=== PATIENT | male | born 1960 ===

== ENCOUNTER 2021-09-18 11:52 | Outpatient (REF) | payer OTHER, SELFPAY | END 2021-09-18 11:53 | disposition home or self-care (01) | LOC: HO.HOSX 11:52 | PROVIDERS: Visit Provider Physician Assistant | DX: Z13.89 Encounter for screening for other disorder (principal) ==

== ENCOUNTER 2021-12-11 14:13 | Outpatient (REF) | payer OTHER, SELFPAY ==
--- NOTE | ~2021-12-11 | XR_ITS ---
EXAMINATION: XR SHOULDER, LEFT CLINICAL INFORMATION: Left shoulder pain. COMPARISON: Left shoulder MRI dated 08/26/2021. TECHNIQUE: AP, scapular Y, and axillary views of the left shoulder. FINDINGS: No acute fracture or dislocation. Moderate acromioclavicular marginal osteophytes. Small lateral subacromial spurs. Mild glenohumeral joint space narrowing with small marginal osteophytes. No osseous erosion. No abnormal soft tissue calcification. 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 Mild glenohumeral osteoarthritis, unchanged.
== END 2021-12-11 14:14 | disposition home or self-care (01) ==
LOC: HO.HOSX 14:13
PROVIDERS: Visit Provider Physician Assistant
DX: M75.102 Unspecified rotator cuff tear or rupture of left shoulder, not specified as traumatic (principal); S46.212A Strain of muscle, fascia and tendon of other parts of biceps, left arm, initial encounter
CPT/HCPCS: 73030; 99202

== ENCOUNTER → 2021-12-18 10:40 | Outpatient (BNVA) | payer OTHER, SELFPAY | PROVIDERS: Visit Provider Orthopaedic Surgery | DX: M75.102 Unspecified rotator cuff tear or rupture of left shoulder, not specified as traumatic (principal) | CPT/HCPCS: 99212 ==

== ENCOUNTER 2022-12-26 11:18 | Emergency (ER) | payer MEDICARE, SELFPAY ==
[2022-12-26 11:23] VITALS: BP 178/87; PULSE 109; RESP 18; TEMP 36.6; O2SAT 98; BMI 25.1
--- NOTE | 2022-12-26 11:26 | ED_ITS ---
HPI - Back Pain/Injury General Chief Complaint: Back Pain/Injury <JUANA Matamoros Last Filed: 12/26/22 11:28> Stated Complaint: back pain rad. to lower back <JUANA Matamoros Last Filed: 12/26/22 11:28> Time Seen by Provider: 12/26/22 12:00 <JUANA Matamoros Last Filed: 12/26/22 11:28> Source: patient, RN notes reviewed and old records reviewed <JUANA Higginbotham Last Filed: 12/26/22 18:14> Mode of arrival: ambulatory <JUANA Higginbotham Last Filed: 12/26/22 18:14> History of Present Illness HPI Narrative: 62-year-old male with no significant past medical history presenting to the ED complaining low back pain radiating up back x 1 week. Denies known injury/trauma or fall. Taking 's medications which include gabapentin without relief at home. Recently had negative outpatient x-rays. Denies radiation of pain down lower extremities, numbness, tingling, weakness, urinary incontinence/retention <JUANA Higginbotham Last Filed: 12/26/22 18:14> MD elicited complaint: back pain <JUANA Higginbotham Last Filed: 12/26/22 18:14> Related Data Home Medications: Previous Rx's Medication Instructions Recorded diclofenac sodium 75 mg 75 mg PO BID PRN pain 30 days #60 04/17/22 tablet,delayed release tabs acetaminophen 500 mg tablet 500 mg PO Q6H PRN fever or pain 12/26/22 (Tylenol Extra Strength) #14 tabs lidocaine 5 % topical patch 1 patch topical DAILY PRN pain #30 12/26/22 (Lidoderm) ea methocarbamol 500 mg tablet 500 mg PO TID 7 days #21 tabs 12/26/22 naproxen 500 mg tablet 500 mg PO BID PRN pain 10 days #20 12/26/22 tabs <JUANA Matamoros Last Filed: 12/26/22 11:28> Allergies/Adverse Reactions: Allergies Allergy/AdvReac Type Severity Reaction Status Date / Time No Known Allergies Allergy Verified 04/17/22 08:11 <JUANA Matamoros - Last Filed: 12/26/22 11:28> Review of Systems Review of Systems: Constitutional: No Fever, No Chills ENT/Mouth: No Ear Pain, No Nasal Congestion, No Sinus Pain, No Hoarseness, No sore throat, No Rhinorrhea, No Swallowing Difficulty Cardiovascular: No Chest Pain, No SOB Respiratory: No Cough, No Sputum, No Wheezing Gastrointestinal: No Nausea, No Vomiting, No Diarrhea, No Constipation, No Abdominal pain Genitourinary: No Dysuria, No Urinary Frequency, No Hematuria, No Urinary Incontinence/retention, No Urgency, No Flank Pain Musculoskeletal: + joint pain, No Myalgias, No Joint Swelling Skin: No Skin Lesions, No rash Neuro: No Weakness, No Numbness, No Paresthesias <JUANA Higginbotham - Last Filed: 12/26/22 18:14> Yes all other systems are reviewed and are negative <JUANA Higginbotham - Last Filed: 12/26/22 18:14> Constitutional: Constitutional: Reports as per HPI <JUANA Higginbotham - Last Filed: 12/26/22 18:14> [facility] Past Medical History Attestation statement: The following information was validated with the patient. <JUANA Higginbotham Last Filed: 12/26/22 18:14> Surgical History: Surgical History History of total left hip replacement <JUANA Matamoros - Last Filed: 12/26/22 11:28> Social History Social History: Social History Housing: Apartment Alcohol intake: never Patient Tobacco Use Status: Never used Tobacco Smoked in Last 30 Days: No e-Cigarette/Vaping Use: Never Used Use of substances other than those prescribed or required for medical reasons: No Advance Directives: No Advance Directives Information Provided: Yes service: No Current occupational status: retired Cognitive needs: No Hearing needs: No Vision needs: No <JUANA Matamoros Last Filed: 12/26/22 11:28> Physical Exam Vital Signs: Vital Signs: Last Vital Signs Temp 98 F 12/26/22 11:23 Pulse 109 H 12/26/22 11:23 Resp 18 12/26/22 11:23 BP 178/87 H 12/26/22 11:23 Pulse Ox 98 12/26/22 11:23 O2 Del Method Room Air 12/26/22 11:23 BMI result Body Mass Index 25.1 <JUANA Matamoros - Last Filed: 12/26/22 11:28> Vital Signs: Last Vital Signs Temp 98 F 12/26/22 11:23 Pulse 109 H 12/26/22 11:23 Resp 18 12/26/22 11:23 BP 178/87 H 12/26/22 11:23 Pulse Ox 98 12/26/22 11:23 O2 Del Method Room Air 12/26/22 11:23 BMI result Body Mass Index 25.1 <JUANA Higginbotham - Last Filed: 12/26/22 18:14> Const: General: cooperative, healthy appearing and no acute distress <JUANA Higginbotham - Last Filed: 12/26/22 18:14> Orientation/consciousness: patient oriented x3 <JUANA Higginbotham - Last Filed: 12/26/22 18:14> Limitations: no limitations <JUANA Higginbotham - Last Filed: 12/26/22 18:14> HEENT: Head: Yes normal to inspection and Yes atraumatic <JUANA Higginbotham - Last Filed: 12/26/22 18:14> Ears: hearing grossly normal bilaterally <JUANA Higginbotham - Last Filed: 12/26/22 18:14> General nose exam: Normal external nose present <JUANA Higginbotham - Last Filed: 12/26/22 18:14> Face and sinus: Yes normal facial exam <JUANA Higginbotham - Last Filed: 12/26/22 18:14> Eyes: General: appearance normal, both eyes and all related structures <JUANA Higginbotham - Last Filed: 12/26/22 18:14> EOM: EOMs intact bilaterally <JUANA Higginbotham - Last Filed: 12/26/22 18:14> Neck: Neck: Yes normal visual inspection and Yes no meningeal signs <Brittney Pouliot, PA - Last Filed: 12/26/22 18:14> Resp: Effort & Inspection: normal respiratory effort and no respiratory distress <Brittney Pouljeaninet, PA - Last Filed: 12/26/22 18:14> Auscultation: clear to auscultation bilaterally <Brittney Pouljeaninet, PA - Last Filed: 12/26/22 18:14> Cardio: Rate: regular rate <Brittney Pouljeaninet, PA - Last Filed: 12/26/22 18:14> Heart sounds: S1 normal heart sound present and S2 normal heart sound present <Brittney Pouljeaninet, PA - Last Filed: 12/26/22 18:14> GI: Inspection: Yes normal to inspection <Brittney Pouljeaninet, PA - Last Filed: 12/26/22 18:14> Palpation (GI): Soft to palpation, nontender, no guarding and not rigid <Brittney Pouljeaninet, PA - Last Filed: 12/26/22 18:14> : General: Yes no CVA tenderness <Brittney Pouljeaninet, PA - Last Filed: 12/26/22 18:14> Back/Spine/Pelvis: Other: No midline thoracic/lumbar spinous tenderness/step-off or deformity. + bilateral lumbar MSK tenderness <Brittney Pouljeaninet, PA - Last Filed: 12/26/22 18:14> Back: no CVA tenderness <Brittney Pouljeaninet, PA - Last Filed: 12/26/22 18:14> Skin: Rashes: no rashes <Brittney Pouljeaninet, PA - Last Filed: 12/26/22 18:14> Wounds: no wounds <Brittney Pouljeaninet, PA - Last Filed: 12/26/22 18:14> Neuro: Other: Strength intact throughout. No saddle anesthesia. Sensation intact to light touch. Neurovascular intact distally <Brittney Pouljeaninet, PA - Last Filed: 12/26/22 18:14> General: patient oriented x3, gait normal, tone normal, moves all extremities, no meningeal signs and no focal motor deficits <Brittney Pouljeaninet, PA - Last Filed: 12/26/22 18:14> Cranial nerves: Yes CN's II-XII intact bilaterally <Brittney Pouljeaninet, PA - Last Filed: 12/26/22 18:14> Cognition (Neuro): normal cognition <JUANA Higginbotham - Last Filed: 12/26/22 18:14> Gait exam (Neuro): Normal gait present <JUANA Higginbotham - Last Filed: 12/26/22 18:14> Extrem: General: Yes normal to inspection <JUANA Higginbotham - Last Filed: 12/26/22 18:14> Course Course Course Narrative: This is an RME: Additional HPI, ROS, PE not included below will be deferred to primary provider. 62-year-old male presents with lower back pain, atraumatic in nature, this has been going on for a week. Recently had an x-ray which was unremarkable. Has been taking ibuprofen and Tylenol with little to no relief. Patient reports 14/10 pain. No red flag symptoms. Patient was ambulatory into triage Plan Toradol cyclobenzaprine <JUANA Matamoros - Last Filed: 12/26/22 11:28> Medications Administered Discontinued Medications Generic Name Dose Route Start Last Admin Trade Name Freq PRN Reason Stop Dose Admin Ketorolac Tromethamine 30 mg 12/26/22 11:27 12/26/22 12:11 Ketorolac Tromethamine 15 Mg/Ml Vial IM 12/26/22 11:28 30 mg ONCE ONE Administration Lidocaine 1 patch 12/26/22 11:27 12/26/22 12:11 Lidocaine 4 % Patch Adh..Patch TRANSDERMA 12/26/22 11:28 1 patch ONCE ONE Administration Protocol Methocarbamol 750 mg 12/26/22 12:22 12/26/22 12:27 Methocarbamol 750 Mg Tablet PO 12/26/22 12:23 750 mg ONCE ONE Administration <JUANA Matamoros - Last Filed: 12/26/22 11:28> Medications Administered Discontinued Medications Generic Name Dose Route Start Last Admin Trade Name Freq PRN Reason Stop Dose Admin Ketorolac Tromethamine 30 mg 12/26/22 11:27 12/26/22 12:11 Ketorolac Tromethamine 15 Mg/Ml Vial IM 12/26/22 11:28 30 mg ONCE ONE Administration Lidocaine 1 patch 12/26/22 11:27 12/26/22 12:11 Lidocaine 4 % Patch Adh..Patch TRANSDERMA 12/26/22 11:28 1 patch ONCE ONE Administration Protocol Methocarbamol 750 mg 12/26/22 12:22 12/26/22 12:27 Methocarbamol 750 Mg Tablet PO 12/26/22 12:23 750 mg ONCE ONE Administration <JUANA Higginbotham - Last Filed: 12/26/22 18:14> Medical Decision Making Medical Decision Making [facility] Narrative: 62-year-old male with no significant past medical history presenting to the ED complaining low back pain radiating up back x 1 week. Denies known injury/trauma or fall. On exam mildly tachycardic likely from pain, NAD, no midline spinous tenderness or or red flag symptoms. Ambulating with steady gait, no saddle anesthesia. Concern for MSK pain/spasming/strain. Lower suspicion for renal stone/pyelo, cauda equina, fracture, or epidural abscess Plan: Pain control, PCP follow-up Please refer to course for remaining clinical decision making, interpretation of labs/imaging results, and discussions with consultants and/or family members. <JUANA Higginbotham - Last Filed: 12/26/22 18:14> Differential Diagnosis Differential Diagnoses: The differential diagnosis associated with the presentation includes <JUANA Higginbotham - Last Filed: 12/26/22 18:14> As above <JUANA Higginbotham - Last Filed: 12/26/22 18:14> Lab Data [facility] Lab Attestation statement: I reviewed the patient's lab results. <JUANA Higginbotham - Last Filed: 12/26/22 18:14> Radiology Impression Discussion of test interpretation with radiology: I have reviewed the radiologist's reading. <JUANA Higginbotham - Last Filed: 12/26/22 18:14> External Record Review External record reviewed: Inpatient record, Office record, Outpatient record, Prior outpatient labs, Prior outpatient radiology, Primary care record and Outside ED record <JUANA Higginbotham Last Filed: 12/26/22 18:14> Discharge Plan Discharge Clinical Impression: Back pain <JUANA Matamoros Last Filed: 12/26/22 11:28> Patient Disposition: Home, Self-Care <JUANA Matamoros Last Filed: 12/26/22 11:28> Instructions: Back Pain (ED) <JUANA Matamoros - Last Filed: 12/26/22 11:28> Additional Instructions: Your pain is likely musculoskeletal Robaxin is a muscle relaxer, take at night as it makes you drowsy, do not drive, drink alcohol, or operate machinery while taking it Naproxen as an anti-inflammatory / pain medication, take with food Lidoderm patches are numbing patches, apply to painful area In addition take Tylenol at home If symptoms persist or worsen, pain becomes unbearable, you developed urinary retention or incontinence, or weakness return to the ED <JUANA Matamoros - Last Filed: 12/26/22 11:28> Prescriptions: New acetaminophen [Tylenol Extra Strength] 500 mg tablet 500 mg PO Q6H PRN (Reason: fever or pain) Qty: 14 0RF lidocaine [Lidoderm] 5 % adhesive patch,medicated 1 patch topical DAILY MDD remove after 12 hours PRN (Reason: pain) Qty: 30 0RF Rx Instructions: leave on most painful area for up to 12 hrs naproxen 500 mg tablet 500 mg PO BID PRN (Reason: pain) 10 Days Qty: 20 0RF methocarbamol 500 mg tablet 500 mg PO TID 7 Days Qty: 21 0RF No Action diclofenac sodium 75 mg tablet,delayed release (DR/EC) 75 mg PO BID PRN (Reason: pain) 30 Days Qty: 60 0RF <JUANA Matamoros - Last Filed: 12/26/22 11:28> Referrals: Physician,None [Primary Care Provider] - 5 days <JUANA Matamoros - Last Filed: 12/26/22 11:28> Interventions: ED Discharge Assessment Last Done: 12/26/22 12:33 <JUANA Matamoros - Last Filed: 12/26/22 11:28> Discharge Date/Time: 12/26/22 12:34 <JUANA Matamoros - Last Filed: 12/26/22 11:28>
[2022-12-26] MEDS: Lidocaine 4 % Patch ADH..PATCH 1 PATCH TRANSDERMA (12:11)
[2022-12-26] MEDS: Ketorolac Tromethamine 15 MG/ML VIAL 30 MG IM (12:11)
[2022-12-26] MEDS: methocarbamoL 750 MG TABLET PO (12:27)
== END 2022-12-26 12:34 | disposition home or self-care (01) ==
PROVIDERS: Emergency Provider Emergency Medicine
DX: M54.50 Low back pain, unspecified (principal)
CPT/HCPCS: 96372; 99284; J1885